=== PATIENT | female | born 1995 | race Caucasian/White ===

== ENCOUNTER → 2020-12-02 | Outpatient (CLI) | payer BC, OTHER ==
[~2020-12-02] MED LIST: PRENATAL VITAM1 EAC8 PO
== END ==
LOC: HEART 5 11-18 10:30
DX: R06.02 Shortness of breath (principal); I34.0 Nonrheumatic mitral (valve) insufficiency; I07.1 Rheumatic tricuspid insufficiency; I37.1 Nonrheumatic pulmonary valve insufficiency; Z86.16 Personal history of COVID-19
CPT/HCPCS: 93306

== ENCOUNTER 2021-05-13 18:29 | Inpatient (IN) | payer BC ==
[~2021-05-13] VITALS: Ht 160 cm; Wt 89.8 kg
[2021-05-13 19:26] LABS: HEMOGLOBIN 9.8 gm/dl (12.3-15.3); RED BLOOD COUNT 3.8 M/UL (4.00-5.10); WHITE BLOOD COUNT 9.2 K/UL (4.5-11.0)
[2021-05-14] MEDS ORDERED: DOCUSATE SODIU250 MG PO (16:00)
[2021-05-14] MEDS ORDERED: IBUPROFEN600 MG PO (16:00)
[2021-05-14] MEDS ORDERED: FEROSUL325 MG PO (16:00)
[2021-05-15 06:49] LABS: HEMOGLOBIN 8.9 gm/dl (12.3-15.3)
== END 2021-05-15 17:50 | disposition home or self-care (01) | DRG 807 ==
LOC: GENOP 18:29 → OB 18:53
PROVIDERS: Obstetrics & Gynecology; ADMIT Obstetrics & Gynecology
PROC: 10E0XZZ Delivery of Products of Conception, External Approach (ICD-10-PCS; principal; 2021-05-14)
PROC: 3E033VJ Introduction of Other Hormone into Peripheral Vein, Percutaneous Approach (ICD-10-PCS; 2021-05-14)
PROC: 0U7C7ZZ Dilation of Cervix, Via Natural or Artificial Opening (ICD-10-PCS; 2021-05-14)
PROC: 10907ZC Drainage of Amniotic Fluid, Therapeutic from Products of Conception, Via Natural or Artificial Opening (ICD-10-PCS; 2021-05-14)
DX: O13.4 Gestational [pregnancy-induced] hypertension without significant proteinuria, complicating childbirth (principal); Z37.0 Single live birth; Z3A.38 38 weeks gestation of pregnancy; Z20.822 Contact with and (suspected) exposure to COVID-19
CPT/HCPCS: 36415; 51702; 81001; 82800; 85014; 85018; 85025; J0595; J2590; J7120; U0002